=== PATIENT | male | born 1975 | race Caucasian/White ===

== ENCOUNTER 2017-07-08 04:22 | Emergency (ER) | payer MEDICAID ==
[~2017-07-08] VITALS: Ht 172.7 cm; Wt 70.3 kg
--- NOTE | 2017-07-08 05:16 | NUR ---
PT AMBUALTORY TO ER BED 1 PT C/O LEFT MENENDEZ ABSCESS X 3 DAYS. PT AOX3 RR EVEN AND UNLABORED. NO SOB NOTED. NAD NOTED. NO NVD AT THIS TIME. PT PLACED ON MONITOR WAITING FOR MD JOHNSON
[2017-07-08 05:51] VITALS: BP 129/71
--- NOTE | 2017-07-08 06:00 | NUR ---
DR. BERGMAN AT BEDSIDE FOR EVAL.
== END 2017-07-08 06:09 | disposition home or self-care (01) ==
LOC: ER 04:22
DX: L98.8 Other specified disorders of the skin and subcutaneous tissue (principal); B95.7 Other staphylococcus as the cause of diseases classified elsewhere; I10 Essential (primary) hypertension
CPT/HCPCS: 99283; A4606; Z7610

== ENCOUNTER 2018-06-05 01:52 | Emergency (ER) | payer MEDICAID ==
--- NOTE | 2018-06-05 02:45 | NUR ---
CALLED PT'S NAME, PT STATES "I NO LONGER WANT TO BE SEEN AND AM LEAVING".
== END 2018-06-05 02:45 | disposition left against medical advice (07) ==
LOC: ER 01:53
DX: Z53.21 Procedure and treatment not carried out due to patient leaving prior to being seen by health care provider (principal)

== ENCOUNTER 2018-06-05 05:12 | Emergency (ER) | payer MEDICAID ==
--- NOTE | 2018-06-05 05:40 | NUR ---
PT IN WAITING ROOM YELLING AND SCREAMING. PT STATED TO SECURITY HE IS LEAVING AND NO LONGER WANTS TO BE SEEN. PT LEFT WAITING ROOM.
== END 2018-06-05 06:04 | disposition left against medical advice (07) ==
LOC: ER 05:14
DX: Z53.21 Procedure and treatment not carried out due to patient leaving prior to being seen by health care provider (principal)

== ENCOUNTER 2020-07-29 00:26 | Emergency (ER) | payer MEDICAID ==
[~2020-07-29] VITALS: Ht 172.7 cm; Wt 68.0 kg
--- NOTE | 2020-07-29 00:37 | NUR ---
EMT AT BED SIDE FOR WOUND/ LACERATION CARE
[2020-07-29] MEDS ORDERED: LIDOCAINE HCL/MPF 1% 30 ML VIAL IJ ONE (00:46)
--- NOTE | 2020-07-29 01:55 | NUR ---
Patient discharged to home in stable condition. Written and verbal after care instructions given. Patient verbalizes understanding of instruction. SUTURES INTACT AND COVERED. PT ambulatory with a steady gait
[2020-07-29 02:00] VITALS: BP 112/79
== END 2020-07-29 01:50 | disposition home or self-care (01) ==
LOC: ER 00:28
DX: S11.81XA Laceration without foreign body of other specified part of neck, initial encounter (principal); F17.200 Nicotine dependence, unspecified, uncomplicated; Z60.2 Problems related to living alone; W01.0XXA Fall on same level from slipping, tripping and stumbling without subsequent striking against object, initial encounter; Y93.89 Activity, other specified; Y92.89 Other specified places as the place of occurrence of the external cause; Y99.8 Other external cause status
CPT/HCPCS: 12002; 99282; A6403; J3490

== ENCOUNTER 2021-02-19 14:55 | Emergency (ER) | payer MEDICAID ==
[~2021-02-19] VITALS: Ht 172.7 cm; Wt 70.8 kg
[2021-02-19] MEDS ORDERED: ONDANSETRON HCL/PF 4 MG/2 ML VIAL IVP ONE (15:30)
[2021-02-19] MEDS ORDERED: IV NS 0.9% 1,000 ML BAG IV ONE (15:30)
[2021-02-19] MEDS ORDERED: KETOROLAC TROMETHAMINE INJ 30 MG/ML VIAL IV ONE (15:30)
[2021-02-19] MEDS ORDERED: KETOROLAC TROMETHAMINE INJ 30 MG/ML VIAL ONE (15:33)
[2021-02-19] MEDS ORDERED: ONDANSETRON HCL/PF 4 MG/2 ML VIAL ONE (15:33)
--- NOTE | 2021-02-19 15:41 | NUR ---
[id number] FROM [facility] FOR R SIDED FLANK PAIN, + NAUSEA. PT AAOX4, VSS. RR EVEN & UNLABORED. DENIES CP, SOB, DIZZINESS AT THIS TIME. PT SEEN & EVAL'D BY CLARE ERNANDEZ. MEDICATED ORDERED, PT NURY WELL. WILL CONT TO MONITOR.
[2021-02-19 15:51] LABS: BASOPHILS # (AUTO) 0.1 K/uL (0.0-0.2); EOSINOPHILS % (AUTO) 0.5 % (0.0-6.0); HEMATOCRIT 43 % (39-51); HEMOGLOBIN 14.5 g/dL (13.5-17.5); LYMPHOCYTES # (AUTO) 2.2 K/uL (0.8-4.8); LYMPHOCYTES % (AUTO) 35.5 % (20.0-44.0); MEAN CORPUSCULAR HGB CONC 34 g/dl (31.0-36.0); MEAN CORPUSCULAR VOLUME 94 fL (80-96); MONOCYTES # (AUTO) 0.5 K/uL (0.1-1.30); MONOCYTES % (AUTO) 8.5 % (2.0-12.0); NEUTROPHILS # (AUTO) 3.4 K/uL (1.8-8.9); NEUTROPHILS % (AUTO) 54.5 % (43.0-81.0); PLATELET COUNT (AUTO) 279 K/uL (150-450); RED BLOOD CELL COUNT(AUTO) 4.53 MIL/uL (4.5-6.0); WHITE BLOOD COUNT (AUTO) 6.3 K/uL (4.3-11.0)
[2021-02-19 15:59] LABS: BILIRUBIN,URINE NEGATIVE (NEGATIVE); COLOR,URINE YELLOW (YELLOW); LEUKOCYTE ESTERASE ,URINE NEGATIVE (NEGATIVE); NITRITE, URINE NEGATIVE (NEGATIVE); PH,URINE 7.5 (5.0-8.0); PROTEIN,URINE TRACE mg/dl (NEGATIVE); UGLUCOSE NEGATIVE (NEGATIVE); UROBILINOGEN,URINE 0.2 EU/dL (0.2)
[2021-02-19 16:06] LABS: BACTERIA,URINE None seen /HPF (None Seen); RBC,URINE 81-100 /HPF (0-2)
[2021-02-19 16:07] LABS: CALCIUM, SERUM 8.3 mg/dL (8.5-10.1); POTASSIUM 3.1 mmol/L (3.5-5.1); SQUAMOUS EPITHELIAL CELL,UR 0-2 /HPF (None Seen); URINE AMORPHOUS PHOSPHATES Moderate /HPF (None Seen)
[2021-02-19 16:13] LABS: ALBUMIN 3.8 g/dL (3.4-5.0); BILIRUBIN,DIRECT 0.2 mg/dL (0.0-0.2); BILIRUBIN,TOTAL 0.6 mg/dL (0.2-1.0); TOTAL PROTEIN, SERUM 6.9 g/dL (6.4-8.2)
[2021-02-19] MEDS ORDERED: POTASSIUM CHLORIDE 20 MEQ TAB.PRT.SR PO ONE ×2 (16:30→16:57)
[2021-02-19] MEDS ORDERED: HYDR-4303 PO (18:02)
[2021-02-19] MEDS ORDERED: IBUP-1955 PO (18:02)
[2021-02-19] MEDS ORDERED: ONDA4TAB5 PO (18:02)
[2021-02-19] MEDS ORDERED: TAMS-12 PO (18:02)
[2021-02-19 18:42] VITALS: BP 132/76
--- NOTE | 2021-02-19 18:42 | NUR ---
Patient discharged to home in stable condition. Written and verbal after care instructions given. Patient verbalizes understanding of instruction.IV removed. Catheter intact and site benign. Pressure and 4x4 applied to site. No bleeding noted.
== END 2021-02-19 18:43 | disposition home or self-care (01) ==
LOC: ER 14:57
DX: N23 Unspecified renal colic (principal); E87.6 Hypokalemia; R11.2 Nausea with vomiting, unspecified; F17.200 Nicotine dependence, unspecified, uncomplicated; Z60.2 Problems related to living alone; Z79.899 Other long term (current) drug therapy
CPT/HCPCS: 36415; 74176; 80048; 80076; 81001; 83690; 83735; 85025; 96361; 96374; 96375; 99284; J1885; J2405; J7030